=== PATIENT | male | born 1950 | race Caucasian/White ===

== ENCOUNTER 2017-12-07 13:06 | Outpatient (CLI) | payer MEDICARE ==
--- NOTE | 2017-12-07 14:30 | RAD ---
PA AND LATERAL CHEST: History: Dyspnea. FINDINGS: Comparison is made with exam of 07-08-15. The heart size is normal. The lungs are expanded without focal areas of consolidation, pneumothoraces , or pleural effusions. Evidence of old granulomatous disease are again seen. No acute osseous abnorm ality seen. There are degenerative changes in the spine. IMPRESSION: No radiographic evidence of acute pulmonary process. POS: [facility]
== END 2017-12-07 13:07 | disposition home or self-care (01) ==
LOC: RAD 13:06
PROVIDERS: ATTEND Internal Medicine Critical Care Medicine
DX: R06.00 Dyspnea, unspecified (principal)
CPT/HCPCS: 71046